=== PATIENT | female | born 1945 | race Caucasian/White ===

== ENCOUNTER 2016-05-20 09:32 | Outpatient (CLI) | payer BC ==
[2016-05-20 12:58] LABS: Cardiac Risk 4.6 (Less than 4.5)
== END 2016-05-20 09:33 | disposition home or self-care (01) ==
LOC: NAVSJIPCSP 09:32
PROVIDERS: ATTEND Internal Medicine
DX: E11.40 Type 2 diabetes mellitus with diabetic neuropathy, unspecified (principal)
CPT/HCPCS: 36415; 80061

== ENCOUNTER 2016-08-08 11:16 | Outpatient (CLI) | payer BC ==
[2016-08-08 12:49] LABS: Hemoglobin A1c 6.3 % (4.0-6.0)
[2016-08-08 13:39] LABS: Anion Gap 16 mmol/L (10-20); BUN (Urea Nitrogen) 30 mg/dL (9.8-20.1); Calc. Creatinine Clearance 0 mL/min (70-130); Calcium 9.9 mg/dL (7.8-10.44); Carbon Dioxide 26 mmol/L (23-31); Cardiac Risk 4.9 (Less than 4.5); Chloride 103 mmol/L (98-107); Cholesterol 127 mg/dl (< 200 Desired); Estimated GFR-MDRD 48; Glucose 138 mg/dL (80-115); HDL Cholesterol 26 mg/dL (>60 Neg Risk); LDL Cholesterol, Calculated 82 mg/dL; Potassium 4.3 mmol/L (3.5-5.1); Sodium 141 mmol/L (136-145); Triglycerides 94 mg/dL (Less than 150)
== END 2016-08-08 11:17 | disposition home or self-care (01) ==
LOC: NAVSJIPCSP 11:16
PROVIDERS: ATTEND Internal Medicine
DX: E11.40 Type 2 diabetes mellitus with diabetic neuropathy, unspecified (principal); Z79.899 Other long term (current) drug therapy
CPT/HCPCS: 36415; 80048; 80061; 83036

== ENCOUNTER 2016-08-08 14:26 | Outpatient (CLI) | payer BC | END 2016-08-08 14:27 | disposition home or self-care (01) | LOC: NAVSJIPCSP 14:26 | PROVIDERS: ATTEND Internal Medicine | DX: E11.40 Type 2 diabetes mellitus with diabetic neuropathy, unspecified (principal); Z79.899 Other long term (current) drug therapy ==

== ENCOUNTER 2016-11-11 08:56 | Outpatient (CLI) | payer BC ==
[2016-11-11 12:39] LABS: Hemoglobin A1c 7.4 % (4.0-6.0)
[2016-11-11 12:47] LABS: Anion Gap 18 mmol/L (10-20); BUN (Urea Nitrogen) 36 mg/dL (9.8-20.1); Calc. Creatinine Clearance 0 mL/min (70-130); Calcium 9.5 mg/dL (7.8-10.44); Carbon Dioxide 26 mmol/L (23-31); Cardiac Risk 4.7 (Less than 4.5); Chloride 101 mmol/L (98-107); Cholesterol 121 mg/dl (< 200 Desired); Estimated GFR-MDRD 44; Glucose 109 mg/dL (80-115); HDL Cholesterol 26 mg/dL (>60 Neg Risk); LDL Cholesterol, Calculated 78 mg/dL; Potassium 4.6 mmol/L (3.5-5.1); Sodium 140 mmol/L (136-145); Triglycerides 84 mg/dL (Less than 150)
== END 2016-11-11 08:57 | disposition home or self-care (01) ==
LOC: NAVSJIPCSP 08:56
PROVIDERS: ATTEND Internal Medicine
DX: E11.40 Type 2 diabetes mellitus with diabetic neuropathy, unspecified (principal); E78.5 Hyperlipidemia, unspecified; Z79.899 Other long term (current) drug therapy
CPT/HCPCS: 36415; 80048; 80061; 83036

== ENCOUNTER 2017-01-30 12:00 | Outpatient (CLI) | payer BC ==
--- NOTE | 2017-01-30 13:25 | RAD ---
FOUR VIEWS RIGHT KNEE: History: Right knee pain. FINDINGS: Four views right knee shows severe tricompartmental joint space narrowing and osteophyte formation co nsistent with osteoarthritis. No knee effusion is seen. There is no evidence of acute fracture or dis location. IMPRESSION: Severe right knee osteoarthritis without acute osseous abnormality. POS: [facility]
== END 2017-01-30 12:01 | disposition home or self-care (01) ==
LOC: NAV RAD 12:00
PROVIDERS: ATTEND Orthopaedic Surgery
DX: M25.561 Pain in right knee (principal); M17.11 Unilateral primary osteoarthritis, right knee